=== PATIENT | male | born 1995 | race Two or more races ===

== ENCOUNTER 2019-09-25 22:18 | Emergency (ER) | payer MEDICAID ==
[~2019-09-25] VITALS: Ht 185.4 cm; Wt 121.6 kg
--- NOTE | 2019-09-25 22:31 | NUR ---
PT AMBULATORY W/ STABLE GAIT, CAME IN WALKING WITH EYES COVERED. C/O LIGHT SENSITIVITY, HEADACHE AND NAUSEA SINCE Monday09/22/19 BUT WORSENING SYMPTOMS TODAY PT AOX3, ABLE TO SPEAK CLEAR COMPLETE SENTENCES, DENIES SOB, DENIES FEVERS/CHILLS/VOMITING/ DIARRHEA VESSEL CREW MEMBER DENIES TRAUMA NOR SURGERIES TO THE SITE MONITORED ACCORDINGLY SIDERAILSX2 UP BED AT LOWEST POSITION
--- NOTE | 2019-09-25 22:49 | NUR ---
ERMD AT BEDSIDE FOR HX AND PHYSICAL
[2019-09-25] MEDS ORDERED: IV NS 1000 ML 1,000 ML IV ONE (23:15)
[2019-09-25] MEDS ORDERED: KETOROLAC TROMETHAMINE 30 MG INJ IVP ONE (23:15)
[2019-09-25] MEDS ORDERED: METOCLOPRAMIDE HCL 10 MG/2 ML VIAL IV ONE (23:15)
[2019-09-25] MEDS ORDERED: MECLIZINE HCL 25 MG TABLET PO ONE (23:15)
[2019-09-25] MEDS ORDERED: MECLIZINE HCL 25 MG TABLET ONE (23:17)
[2019-09-25] MEDS ORDERED: KETOROLAC TROMETHAMINE 30 MG INJ ONE (23:17)
[2019-09-25] MEDS ORDERED: METOCLOPRAMIDE HCL 10 MG/2 ML VIAL ONE (23:17)
--- NOTE | 2019-09-26 00:05 | NUR ---
PT ABLE TO TOLERATE IV FLUID (1000ML NSS) IVF INFUSION DONE AT 0005 (IV STOP TIME) SALINE LOCK INTACT AND PATENT NO SIGNS OF INFILTRATION/PHLEBITIS
--- NOTE | 2019-09-26 00:06 | NUR ---
PT ABLE TO TOLERATE LIGHT ON. PT ABLE TO WALK TRIAL OF 3 STEPS TO AND FROM ROOM PT ABLE TO WALK WITH STABLE GAIT AND NO DIZZINESS ACROSS THE ROOM AND AROUND THE FRONT OF THE NURSES STATION
--- NOTE | 2019-09-26 00:28 | NUR ---
Patient discharged to home in stable conditon. Written and verbal after care instructions given. Patient verbalizes understanding of instructions. AMBULATORY W/ STABLE GAIT ALL BELONGINGS W/ PT IV DC, DRESSED
[2019-09-26 00:30] VITALS: BP 128/70
== END 2019-09-26 00:31 | disposition home or self-care (01) ==
LOC: ER 22:20
DX: R51 Headache (principal); R42 Dizziness and giddiness; J45.909 Unspecified asthma, uncomplicated
CPT/HCPCS: 96361; 96374; 96375; 99283; J1885; J2765; A4663; J7030; J8597

== ENCOUNTER 2020-12-11 21:50 | Emergency (ER) | payer MEDICAID ==
[~2020-12-11] VITALS: Ht 185.4 cm; Wt 126.1 kg
[2020-12-11] MEDS ORDERED: IV NORMAL SALINE 1000 ML BAG IV ONE (22:15)
[2020-12-11] MEDS ORDERED: ONDANSETRON 4 MG/2 ML VIAL IV ONE (22:15)
[2020-12-11] MEDS ORDERED: ONDANSETRON 4 MG/2 ML VIAL ONE (22:29)
[2020-12-11 22:39] LABS: BASOPHILS # (AUTO) 0.1 K/uL (0.0-8.0); BASOPHILS % (AUTO) 0.8 % (0.0-2.0); EOSINOPHILS # (AUTO) 0.1 K/uL (0.0-0.7); HEMATOCRIT 41.4 % (36.7-47.1); HEMOGLOBIN 14.1 g/dL (12.5-16.3); LYMPHOCYTES # (AUTO) 1.9 K/uL (20.0-40.0); MEAN CORPUSCULAR HEMOGLOBIN 29.7 uug (23.8-33.4); MEAN CORPUSCULAR HGB CONC 34 g/dL (32.5-36.3); MEAN CORPUSCULAR VOLUME 87.1 fL (73.0-96.2); MONOCYTES # (AUTO) 0.5 K/uL (2.0-10.0); MONOCYTES % (AUTO) 7.4 % (0.0-11.0); NEUTROPHILS # (AUTO) 4.2 K/uL (1.8-8.9); NEUTROPHILS % (AUTO) 61.8 % (38.5-71.5); PLATELET COUNT (AUTO) 259 K/uL (152-348); RED BLOOD CELL COUNT(AUTO) 4.76 MIL/uL (4.06-5.63); WHITE BLOOD COUNT (AUTO) 6.8 K/uL (3.6-10.2)
[2020-12-11 22:49] LABS: POTASSIUM 3.8 mmol/L (3.5-5.1)
[2020-12-11 22:53] LABS: BILIRUBIN,DIRECT 0.1 mg/dL (0.0-0.2); BILIRUBIN,TOTAL 0.5 mg/dL (0.2-1.0); TOTAL PROTEIN, SERUM 7.3 g/dL (6.4-8.2)
[2020-12-11 23:36] VITALS: BP 140/75
== END 2020-12-11 23:36 | disposition home or self-care (01) ==
LOC: ER 21:50
DX: A05.9 Bacterial foodborne intoxication, unspecified (principal); J45.909 Unspecified asthma, uncomplicated; Z98.1 Arthrodesis status; I95.1 Orthostatic hypotension
CPT/HCPCS: 80048; 80076; 83690; 85025; 96361; 96374; 99284; J2405; 36415; A4663

== ENCOUNTER 2020-12-19 18:57 | Emergency (ER) | payer MEDICAID ==
[~2020-12-19] VITALS: Ht 185.4 cm; Wt 124.7 kg
[2020-12-19] MEDS ORDERED: IV NORMAL SALINE 1000 ML BAG IV ONE (19:45)
[2020-12-19 19:55] LABS: BASOPHILS # (AUTO) 0.1 K/uL (0.0-8.0); BASOPHILS % (AUTO) 0.9 % (0.0-2.0); EOSINOPHILS # (AUTO) 0.2 K/uL (0.0-0.7); EOSINOPHILS % (AUTO) 3.5 % (0.0-7.0); HEMOGLOBIN 14.5 g/dL (12.5-16.3); LYMPHOCYTES # (AUTO) 2.5 K/uL (20.0-40.0); LYMPHOCYTES % (AUTO) 35.6 % (20.5-51.5); MEAN CORPUSCULAR HGB CONC 34 g/dL (32.5-36.3); MEAN CORPUSCULAR VOLUME 88.7 fL (73.0-96.2); MONOCYTES # (AUTO) 0.6 K/uL (2.0-10.0); MONOCYTES % (AUTO) 8.6 % (0.0-11.0); NEUTROPHILS # (AUTO) 3.6 K/uL (1.8-8.9); NEUTROPHILS % (AUTO) 51.4 % (38.5-71.5); PLATELET COUNT (AUTO) 266 K/uL (152-348); RED BLOOD CELL COUNT(AUTO) 4.84 MIL/uL (4.06-5.63)
[2020-12-19 19:58] LABS: *OCCULT BLOOD STOOL POSITIVE (NEGATIVE)
[2020-12-19 20:00] LABS: CREATININE 1.1 mg/dL (0.6-1.3); POTASSIUM 3.9 mmol/L (3.5-5.1)
[2020-12-19 20:06] LABS: BILIRUBIN,DIRECT 0.1 mg/dL (0.0-0.2); BILIRUBIN,TOTAL 0.3 mg/dL (0.2-1.0); TOTAL PROTEIN, SERUM 7.6 g/dL (6.4-8.2)
[2020-12-19 20:15] LABS: *BILIRUBIN,URIN NEGATIVE (NEGATIVE); *BLOOD, URINE NEGATIVE (NEGATIVE); *CLARITY,URINE CLEAR (CLEAR); *COLOR,URINE YELLOW (YELLOW); *KETONES,URINE NEGATIVE (NEGATIVE); *UROBILINOGEN,URINE 0.2 E.U./dl (NORMAL); LEUKOCYTE ESTERASE ,URINE NEGATIVE (NEGATIVE); NITRITE, URINE NEGATIVE (NEGATIVE); PH,URINE 7.5 (5.0-8.0); UGLUCOSE NEGATIVE (NEGATIVE)
--- NOTE | 2020-12-19 20:30 | NUR ---
PATIENT RESTING IN ROOM WITH NO DISTRESS NOTED.
--- NOTE | 2020-12-19 20:40 | NUR ---
IV removed. Catheter intact and site benign. Pressure and 4x4 gauze applied to site. No bleeding noted.
[2020-12-19 20:49] VITALS: BP 122/85
--- NOTE | 2020-12-19 20:49 | NUR ---
Patient discharged to home in stable condition. Written and verbal after care instructions given. Patient verbalizes understanding of instructions. Stressed follow up or return to ER for worsening s/s.
== END 2020-12-19 20:49 | disposition home or self-care (01) ==
LOC: ER 18:57
DX: K92.1 Melena (principal); I95.1 Orthostatic hypotension; Z98.1 Arthrodesis status
CPT/HCPCS: 36415; 85025; 85730; A4663; J7030

== ENCOUNTER 2021-04-13 20:31 | Emergency (ER) | payer MEDICAID ==
[~2021-04-13] VITALS: Ht 185.4 cm; Wt 127.0 kg
[2021-04-14] MEDS ORDERED: OXYC-128 PO (00:25)
[2021-04-14 00:48] VITALS: BP 135/77
== END 2021-04-14 00:49 | disposition home or self-care (01) ==
LOC: ER 20:31
DX: S39.011A Strain of muscle, fascia and tendon of abdomen, initial encounter (principal); X50.0XXA Overexertion from strenuous movement or load, initial encounter; X50.9XXA Other and unspecified overexertion or strenuous movements or postures, initial encounter; Y93.02 Activity, running; Y92.89 Other specified places as the place of occurrence of the external cause; Z98.1 Arthrodesis status; R03.0 Elevated blood-pressure reading, without diagnosis of hypertension
CPT/HCPCS: 73502; A4663